=== PATIENT | male | born 1975 | race Two or more races ===

== ENCOUNTER 2024-06-27 23:25 | Emergency (ER) | payer OTHER ==
[~2024-06-27] VITALS: Ht 182.9 cm; Wt 86.2 kg
[~2024-06-27 23:25] MED LIST: PEPCID40 MG PO; ZOFRAN4 MG PO
[2024-06-28] MEDS ORDERED: HYOSCYAMINE SULFATE 0.125 MG TAB.SUBL SL ONE (02:15)
[2024-06-28 02:30] LABS: HEMOGLOBIN 16.4 g/dL (13-16.00); MEAN CELL VOLUME 91.2 fL (80.0-100.00); MEAN CORPUSCULAR HEMOGLOBIN 31.2 pg (27.00-32.0); MEAN CORPUSCULAR HGB CONC 34.2 g/dl (32.0-36.0); PLATELET COUNT 295 K/uL (150-450); RED BLOOD COUNT 5.26 M/uL (4.00-6.00); RED CELL DISTRIBUTION WIDTH 13.2 % (11.5-14.5)
== END 2024-06-28 03:42 | disposition home or self-care (01) ==
LOC: ER 23:27
DX: R10.12 Left upper quadrant pain (principal); K59.01 Slow transit constipation